=== PATIENT | male | born 1990 | race Caucasian/White ===

== ENCOUNTER 2020-09-15 13:02 | Observation (INO) ==
[2020-09-15 14:06] LABS: Amphetamine Screen,Urine Positive ng/mL (Cutoff=1000); Barbiturate Screen,Urine Negative ng/mL (Cutoff=200); Benzodiazepines Screen,Urine Negative ng/mL (Cutoff=200); Cannabinoid Screen,Urine Negative ng/mL (Cutoff = 50); Cocaine Screen,Urine Negative ng/mL (Cutoff= 300); Opiate Screen,Urine Negative ng/mL (Cutoff=300); Phencyclidine Screen,Urine Negative ng/mL (Cutoff=25)
[2020-09-15 15:46] LABS: Hematocrit 37.7 % (37.5-50.1); Hemoglobin 13.3 g/dL (12.9-16.9); Mean Corpuscular HGB Conc 35.3 g/dL (31.6-35.5); Mean Corpuscular Hemoglobin 32.2 pg (28.0-33.3); Mean Corpuscular Volume 91.3 fL (83.0-100.0); Mean Platelet Volume 9.1 fL (9.4-12.4); Platelet Count 258 K/mcL (140-400); Red Blood Count 4.13 M/mcL (4.19-5.50); Red Cell Distribution Width 11.6 % (11.5-14.5); White Blood Count 12.3 K/mcL (4.3-11.1)
[2020-09-15 16:03] LABS: Acetaminophen < 10 mcg/mL (10-20); Ethanol < 10 mg/dL (Less than 10); Salicylate < 2.5 mg/dL (15.0-30.0)
[2020-09-15] MEDS ORDERED: Piperacillin/Tazobactam 3.375 GM in 0.9 % Sodium Chloride Mini Bag 100 ML IVPB ONE (16:04)
[2020-09-15 16:06] LABS: Alanine Aminotransferase 23 Units/L (7-52); Albumin 3.3 g/dL (3.5-5.7); Albumin/Globulin Ratio 1.1 (1.1-2.2); Alkaline Phosphatase 70 Units/L (34-104); Aspartate Amino Transferase 18 Units/L (13-39); BUN/Creatinine Ratio 13 (6-26); Bilirubin,Direct 0.1 mg/dL (0.0-0.2); Bilirubin,Indirect 0.5 mg/dL (0.0-1.0); Bilirubin,Total 0.6 mg/dL (0.3-1.0); Blood Urea Nitrogen 10 mg/dL (6-20); Calcium 8.5 mg/dL (8.6-10.3); Carbon Dioxide 27 mEq/L (23-29); Chloride 104 mEq/L (98-107); Globulin 2.9 g/dL (2.4-3.5); Glucose 118 mg/dL (70-105); Lipase 8 Units/L (11-82); Osmolality,Calculated 282 (280-300); Potassium 3.8 mEq/L (3.5-5.1); Sodium 136 mEq/L (136-145); Total Protein 6.2 g/dL (6.4-8.9); Troponin I < 0.03 ng/mL (< 0.04); eGFR For African Americans > 60 (> 60); eGFR For Non-African Americans > 60 (> 60)
[2020-09-15] MEDS ORDERED: Ketorolac 30 MG/ML VIAL IVP PRN (17:33)
[2020-09-15] MEDS ORDERED: Ondansetron ODT 4 MG TAB.RAPDIS SL PRN (17:33)
[2020-09-15] MEDS ORDERED: Acetaminophen 325 MG TABLET PO PRN (17:33)
[2020-09-15] MEDS ORDERED: *HR* Promethazine 25 MG/ML VIAL IM PRN (17:33)
[2020-09-15] MEDS ORDERED: Naloxone 0.4 MG/ML INJ IVP PRN (17:33)
[2020-09-15] MEDS: Ringers Solution, Lactated 1,000 ML IVC SCH (18:38)
[2020-09-15] MEDS: Ampicillin/Sulbactam 3,000 MG in 0.9 % Sodium Chloride Mini Bag 100 ML IVPB SCH (20:05)
[2020-09-16 00:43] LABS: Hematocrit 37.8 % (37.5-50.1); Hemoglobin 12.8 g/dL (12.9-16.9); Mean Corpuscular HGB Conc 33.9 g/dL (31.6-35.5); Mean Corpuscular Hemoglobin 30.9 pg (28.0-33.3); Mean Corpuscular Volume 91.3 fL (83.0-100.0); Mean Platelet Volume 9.1 fL (9.4-12.4); Platelet Count 237 K/mcL (140-400); Red Blood Count 4.14 M/mcL (4.19-5.50); Red Cell Distribution Width 11.8 % (11.5-14.5); White Blood Count 11.5 K/mcL (4.3-11.1)
[2020-09-16 01:03] LABS: Alanine Aminotransferase 21 Units/L (7-52); Albumin/Globulin Ratio 1.2 (1.1-2.2); Alkaline Phosphatase 64 Units/L (34-104); Aspartate Amino Transferase 15 Units/L (13-39); BUN/Creatinine Ratio 10 (6-26); Bilirubin,Total 0.6 mg/dL (0.3-1.0); Blood Urea Nitrogen 9 mg/dL (6-20); Calcium 8.3 mg/dL (8.6-10.3); Carbon Dioxide 28 mEq/L (23-29); Chloride 106 mEq/L (98-107); Globulin 2.6 g/dL (2.4-3.5); Glucose 93 mg/dL (70-105); Osmolality,Calculated 282 (280-300); Potassium 3.7 mEq/L (3.5-5.1); Sodium 137 mEq/L (136-145); Total Protein 5.6 g/dL (6.4-8.9); eGFR For African Americans > 60 (> 60); eGFR For Non-African Americans > 60 (> 60)
[2020-09-16] MEDS: Ampicillin/Sulbactam 3,000 MG in 0.9 % Sodium Chloride Mini Bag 100 ML IVPB SCH ×2 (01:50→07:32)
[2020-09-16] MEDS: Ringers Solution, Lactated 1,000 ML IVC SCH ×2 (04:14→10:54)
[2020-09-16] MEDS ORDERED: *HR* Metoprolol 5 MG/5 ML VIAL IVP ONE ×2 (07:48→13:49)
[2020-09-16] MEDS ORDERED: Promethazine 6.25 MG in Water for inj. (sterile) 20 ML IVPB PRN (09:56)
[2020-09-16] MEDS ORDERED: Ondansetron 4 MG/2 ML VIAL IVP PRN (09:56)
[2020-09-16] MEDS ORDERED: *HR* HYDROmorphone PF 0.5 MG/0.5 ML SYRINGE IVP PRN (09:56)
[2020-09-16] MEDS ORDERED: *HR* OxyCODONE Immed Rel 5 MG TABLET PO PRN (09:56)
[2020-09-16] MEDS ORDERED: Isovue-300 50ML VIAL ONE (11:27)
[2020-09-16] MEDS ORDERED: Ondansetron 4 MG/2 ML VIAL ONE (12:01)
[2020-09-16] MEDS ORDERED: *HR* FentaNYL (PF) 100 MCG/2 ML VIAL ONE ×2 (12:13→12:40)
[2020-09-16] MEDS ORDERED: *HR* Propofol 200 MG/20 ML VIAL IVP ONE (12:40)
[2020-09-16] MEDS ORDERED: Lidocaine HCL 4 ML Topical Solution (Laryng-O-Jet Kit Sterile Pak) TP ONE (12:40)
[2020-09-16] MEDS ORDERED: Lidocaine -MPF 2% 2 ML VIAL ONE (12:40)
[2020-09-16] MEDS ORDERED: *HR* Midazolam HCl 2 MG/2 ML VIAL ONE (12:40)
[2020-09-16] MEDS ORDERED: *HR* Rocuronium Bromide 50 MG/5 ML VIAL ONE (12:40)
[2020-09-16] MEDS ORDERED: Ondansetron ODT 4 MG TAB.RAPDIS SL PRN (13:33)
[2020-09-16] MEDS ORDERED: *HR* OxyCODONE/APAP 5/325 TABLET PO PRN (13:33)
[2020-09-16] MEDS ORDERED: Naloxone 0.4 MG/ML INJ IVP PRN (13:33)
[2020-09-16] MEDS ORDERED: Ketorolac 30 MG/ML VIAL IVP PRN (13:33)
[2020-09-16 13:52] VITALS: TEMP 97.9
[2020-09-16] MEDS ORDERED: Ampicillin/Sulbactam 3,000 MG in 0.9 % Sodium Chloride Mini Bag 100 ML IVPB SCH (14:00)
[2020-09-16 16:57] VITALS: BP 170/87; PULSE 91; O2SAT 99
== END 2020-09-16 17:01 | disposition home or self-care (01) ==
LOC: 3BNU 13:02 → EMEROOARM 13:02 → SUATTDRO 17:11 → 3BNU 17:54
PROVIDERS: ADMIT Internal Medicine; ATTEND Internal Medicine